=== PATIENT | female | born 1990 ===

== ENCOUNTER 2017-07-30 19:31 | Emergency (ER) | payer OTHER ==
[2017-07-30 19:52] VITALS: PULSE 90; RESP 18; TEMP 97.7; O2SAT 98
--- NOTE | 2017-07-30 20:39 | ED PDOC ---
HPI: Back Time Seen by Provider: 07/30/17 20:00 Chief Complaint (Nursing): Back Pain Chief Complaint (Provider): Lower Back Pain History Per: Patient History/Exam Limitations: no limitations Onset/Duration Of Symptoms: Hrs Current Symptoms Are (Timing): Still Present Severity: None Previous Symptoms: None Associated Symptoms: None Additional Complaint(s): 27 year old female presents to the ED complaining of lower back pain that began today around 11 am. The patient states that the pain began after she bent over to grape picker a basket of laundry. She denies any other strenuous activity. The patient describes the pain as strong and states that it shoots across the lower back and radiates to her bilateral lower extremities. Patient reports that she took 400mg of advil at noon but it offered her no relief. Denies trauma, falls, fever, bowel/bladder incontinence, chest pain, abdominal pain, shortness of breath, saddle anesthesia, urinary symptoms. Of note: Due to language barrier abrasive grader [id number] was used for translation. L.M.P: 07/24/17 NO PRIMARY CARE PROVIDER Past Medical History Reviewed: Historical Data, Nursing Documentation, Vital Signs Vital Signs: Last Vital Signs Temp 97.7 F 07/30/17 19:48 Pulse 90 07/30/17 19:48 Resp 18 07/30/17 19:48 BP 122/102 H 07/30/17 19:48 Pulse Ox 98 07/30/17 19:48 - Medical History PMH: No Chronic Diseases - Surgical History Surgical History: No Surg Hx - Family History Family History: States: Unknown Family Hx - Social History Current smoker - smoking cessation education provided: No Ex-Smoker (has not smoked in the last 12 months): No Alcohol: None Drugs: Denies - Home Medications Home Medications: Ambulatory Orders Medication Instructions Recorded Cyclobenzaprine [Cyclobenzaprine 10 mg PO Q8 PRN #12 tab 07/30/17 HCl] Naproxen 500 mg PO BID #20 tab 07/30/17 - Allergies Allergies/Adverse Reactions: Allergies Allergy/AdvReac Type Severity Reaction Status Date / Time No Known Allergies Allergy Verified 07/30/17 19:48 Review of Systems ROS Statement: Except As Marked, All Systems Reviewed And Found Negative Constitutional: Negative for: Fever Cardiovascular: Negative for: Chest Pain Gastrointestinal: Negative for: Abdominal Pain Genitourinary Female: Negative for: Incontinence (bowel nor bladder) Musculoskeletal: Positive for: Back Pain (lower) Physical Exam - Reviewed Nursing Documentation Reviewed: Yes Vital Signs Reviewed: Yes - Physical Exam Appears: Positive for: Well, Non-toxic, Uncomfortable Head Exam: Positive for: ATRAUMATIC, NORMAL INSPECTION, NORMOCEPHALIC Skin: Positive for: Normal Color, Warm, Dry. Negative for: Rash Eye Exam: Positive for: Normal appearance, EOMI, PERRL Neck: Positive for: Normal (No midline tenderness), Painless ROM, Supple. Negative for: Decreased ROM, Pain On Movement Of Neck Cardiovascular/Chest: Positive for: Regular Rate, Rhythm, Chest Non Tender. Negative for: Murmur, Tachycardia Respiratory: Positive for: Normal Breath Sounds, Rhonchi. Negative for: Decreased Breath Sounds, Accessory Muscle Use, Wheezing, Respiratory Distress Pulses-Dorsalis Pedis (L): 2+ Pulses-Dorsalis Pedis (R): 2+ Gastrointestinal/Abdominal: Positive for: Bowel Sounds, Soft. Negative for: Tenderness, Distended, Guarding, Rebound Back: Positive for: Muscle Spasm (to right paralumbar region), Other (Diffuse paralumbar tenderness). Negative for: L CVA Tenderness, R CVA Tenderness, Vertebral Tenderness Extremity: Positive for: Normal ROM, Tenderness. Negative for: Calf Tenderness , Deformity, Swelling Neurologic/Psych: Positive for: Alert, Oriented, Gait, Other (Sensation in both legs intact ). Negative for: Motor/Sensory Deficits - ECG O2 Sat by Pulse Oximetry: 98 (RA) Pulse Ox Interpretation: Normal Medical Decision Making Medical Decision Makin Initial Impression 27 y/o female presenting with acute back pain/spasm, lumbosacral strain Initial Plan: * Flexeril 10mg PO * Toradol 30mg IM * Ultram 50mg PO * Reevaluation 2139 On re-evaluation, patient resting in bed but still reports continued pain. Valium 5mg PO administered. 2309 Patient able to ambulate in ED. Reports improvement of presenting symptoms. NV intact with no focal deficit. Stable for discharge. Patient agreeable to discharge plan and outpatient follow up with the clinic. Documented by Melita Sheridan acting as a scribe for Aye BULL. All medical record entries made by the Scribe were at my direction and personally dictated by me. I have reviewed the chart and agree that the record accurately reflects my personal performance of the history, physical exam, medical decision making, and the department course for this patient. I have also personally directed, reviewed, and agree with the discharge instructions and disposition. Disposition - Clinical Impression Clinical Impression: Acute low back pain, Lumbosacral strain, Muscle spasm of back - Patient ED Disposition Is Patient to be Admitted: No - Disposition Referrals: [facility] [Outside] Disposition: Routine/Home Disposition Time: 23:19 Condition: STABLE Prescriptions: Cyclobenzaprine [Cyclobenzaprine HCl] 10 mg PO Q8 PRN #12 tab PRN Reason: spasm Naproxen 500 mg PO BID #20 tab Instructions: Low Back Pain in Adults, Muscle Spasms (DC), Lumbar Muscle Strain Forms: [facility] (Tajik) Print Language: SOUTH SUDANESE
[2017-07-30] MEDS ORDERED: diaZEpam 10 mg/2 ml Inj IM STA (21:38)
[2017-07-30 23:33] VITALS: BP 105/70
== END 2017-07-30 23:50 | disposition home or self-care (01) ==
LOC: H.ER 19:31
DX: S39.012A Strain of muscle, fascia and tendon of lower back, initial encounter (principal); M62.830 Muscle spasm of back; M54.5 Low back pain
CPT/HCPCS: 81025; 96372; 99282; J1885

== ENCOUNTER 2018-07-21 17:07 | Emergency (ER) | payer OTHER ==
[2018-07-21 18:02] VITALS: BMI 22.9
[2018-07-21] MEDS ORDERED: Sodium Chloride 0.9% 1,000 ML IV STA (19:29)
--- NOTE | 2018-07-21 19:47 | ED PDOC ---
HPI: Influenza Time Seen by Provider: 07/21/18 19:12 Chief Complaint: Flu-like Symptoms History Per: Patient Additional complaint(s):: Pt. states on Tuesday she developed a fever, bodyaches, cough/congestion, N/V, bodyaches. Has been taking Tylenol 1 tab PO q12h (last dose 4 hours ago). Reports she is able to tolerating fluids but has also had a decreased appetite. Denies abdominal pain and diarrhea (contrary to triage note). Denies SOB, rash, sick contacts, recent travel, melena, hematochezia, BRBPR, rectal bleeding. Past Medical History Reviewed: Historical Data, Nursing Documentation, Vital Signs Vital Signs: Last Vital Signs Temp 101.9 F H 07/21/18 17:59 Pulse 110 H 07/21/18 17:59 Resp 18 07/21/18 17:59 BP 111/72 07/21/18 17:59 Pulse Ox 99 07/21/18 17:59 - Surgical History Surgical History: Appendectomy - Family History Family History: States: No Known Family Hx - Home Medications Home Medications: Ambulatory Orders Medication Instructions Recorded Cyclobenzaprine [Cyclobenzaprine 10 mg PO Q8 PRN #12 tab 07/30/17 HCl] RX: Naproxen 500 mg PO BID #20 tab 07/30/17 Oseltamivir Cap [Tamiflu] 75 mg PO BID #9 cap 07/21/18 RX: Ibuprofen [Motrin Tab] 600 mg PO Q6 PRN #10 tab 07/21/18 - Allergies Allergies/Adverse Reactions: Allergies Allergy/AdvReac Type Severity Reaction Status Date / Time No Known Allergies Allergy Verified 07/21/18 18:05 Review of Systems ROS Statement: Except As Marked, All Systems Reviewed And Found Negative Constitutional: Positive for: Fever, Malaise ENT: Positive for: Throat Pain Respiratory: Positive for: Cough Gastrointestinal: Positive for: Nausea, Vomiting Physical Exam - Physical Exam Appears: Positive for: Well, Non-toxic, No Acute Distress Skin: Positive for: Normal Color, Warm. Negative for: Rash Eye Exam: Positive for: Normal appearance ENT: Positive for: Normal ENT Inspection. Negative for: Pharyngeal Erythema, T onsillar Exudate, Tonsillar Swelling Neck: Positive for: Normal, Painless ROM, Supple Cardiovascular/Chest: Positive for: Tachycardia. Negative for: Murmur Respiratory: Positive for: Normal Breath Sounds. Negative for: Wheezing, Respiratory Distress Gastrointestinal/Abdominal: Positive for: Soft. Negative for: Tenderness, Guarding - Laboratory Results Result Diagrams: 07/21/18 21:38 07/21/18 21:38 - ECG O2 Sat by Pulse Oximetry: 99 - Radiology X-Ray: Interpreted by Me (CXR) X-Ray Interpretation: No Acute Disease - Progress Condition: Re-examined, Improved Disposition - Clinical Impression Clinical Impression: Influenza - Patient ED Disposition Is Patient to be Admitted: No - Disposition Referrals: [facility] [Outside] Disposition: Routine/Home Disposition Time: 21:24 Condition: IMPROVED Additional Instructions: FOLLOW UP WITH YOUR DOCTOR FOR FURTHER EVALUATION RETURN TO ED IMMEDIATELY IF SYMPTOMS WORSEN ANAMARIA MARY, thank you for letting us take care of you today. Your provider was Aye Hernandez MD and you were treated for FLU LIKE SYMPTOMS. The emergency medical care you received today was directed at your acute symptoms. If you were prescribed any medication, please fill it and take as directed. It may take several days for your symptoms to resolve. Return to the Emergency Department if your symptoms worsen, do not improve, or if you have any other problems. Please contact your doctor or call one of the physicians/clinics you have been referred to that are listed on the Patient Visit Information form that is included in your discharge packet. Bring any paperwork you were given at discharge with you along with any medications you are taking to your follow up visit. Our treatment cannot replace ongoing medical care by a primary care provider outside of the emergency department. Thank you for allowing the [facility] team to be part of your care today. If you had an X-Ray or CT scan: A Radiologist will review the ED reading if any change in treatment is needed we will contact you. If you had a blood, urine, or wound culture: It will take several days for the results, if any change in treatment is needed we will contact you. If you had an STI test: It will take 48 hours for the results. Please call after 1 week if you have not heard back. Prescriptions: RX: Ibuprofen [Motrin Tab] 600 mg PO Q6 PRN #10 tab PRN Reason: Fever >100.4 F Oseltamivir Cap [Tamiflu] 75 mg PO BID #9 cap Instructions: Flu, Adult (DC) Print Language: CAMEROONIAN
[2018-07-21 21:37] LABS: VENOUS BLOOD GAS BASE EXCESS -0.1 mmol/L (0.0-2.0); VENOUS BLOOD GAS PCO2 36 mmHg (40-60); VENOUS BLOOD GAS PO2 58 mm/Hg (30-55); VENOUS BLOOD PH 7.43 (7.32-7.43)
[2018-07-21 21:55] LABS: BASO % 0.4 % (0.0-2.0); HEMOGLOBIN 12.5 g/dL (12.0-16.0); LYMPH # 0.9 K/uL (1.0-4.3); LYMPH % 29.9 % (20.0-40.0); MEAN CELL VOLUME 85.9 fl (81.0-99.0); MEAN CORPUSCULAR HEMOGLOBIN 28.9 pg (27.0-31.0); MEAN CORPUSCULAR HGB CONC 33.6 g/dL (33.0-37.0); MEAN PLATELET VOLUME 9.3 fl (7.2-11.7); MONO # 0.3 K/uL (0.0-0.8); MONO % 8.3 % (0.0-10.0); NEUT # 1.9 K/uL (1.8-7.0); NEUT % 61.4 % (50.0-75.0); RBC 4.32 Mil/uL (3.80-5.20); RED CELL DISTRIBUTION WIDTH 13.1 % (11.5-14.5); WHITE BLOOD COUNT 3.1 K/uL (4.8-10.8)
[2018-07-21 21:59] LABS: SQUAMOUS EPITHIAL 11 /hpf (0-5); URINE BACTERIA RARE (<OCC); URINE BILIRUBIN NEGATIVE (NEGATIVE); URINE BLOOD SMALL (NEGATIVE); URINE CLARITY CLOUDY (Clear); URINE COLOR YELLOW (YELLOW); URINE GLUCOSE (UA) NEG (NEGATIVE); URINE LEUKOCYTE ESTERASE NEG Leu/uL (Negative); URINE PROTEIN 30 mg/dL (NEGATIVE); URINE UROBILINOGEN 0.2-1.0 mg/dL (0.2-1.0)
[2018-07-21 22:05] LABS: ALB/GLOB RATIO 1.3 (1.0-2.1); ALBUMIN 3.7 g/dL (3.5-5.0); ALT/SGPT 49 U/L (9-52); AST/SGOT 42 U/L (14-36); BLOOD UREA NITROGEN 9 mg/dl (7-17); CALCIUM 8.1 mg/dL (8.4-10.2); GFR NON-AFRICAN AMERICAN > 60
[2018-07-21] MEDS ORDERED: Potassium Chloride 20 mEq ER Tab PO STA (22:14)
[2018-07-21] MEDS ORDERED: Potassium Chloride 20 mEq ER Tab PO ONE (23:16)
[2018-07-21 23:18] VITALS: BP 102/65; PULSE 73; RESP 18; TEMP 99.6
--- NOTE | 2018-07-22 10:03 | RAD ---
Date of service: 07/21/2018 HISTORY: cough COMPARISON: No prior. TECHNIQUE: Chest PA and lateral FINDINGS: LUNGS: No active pulmonary disease. PLEURA: No significant pleural effusion identified. No pneumothorax apparent. CARDIOVASCULAR: No aortic atherosclerotic calcification present. Normal cardiac size. No pulmonary vascular congestion. OSSEOUS STRUCTURES: No significant abnormalities. VISUALIZED UPPER ABDOMEN: Normal. OTHER FINDINGS: None. IMPRESSION: No active disease.
[2018-07-22 23:17] VITALS: O2SAT 99
== END 2018-07-21 23:20 | disposition home or self-care (01) ==
LOC: H.ER 17:07
DX: J11.1 Influenza due to unidentified influenza virus with other respiratory manifestations (principal)
CPT/HCPCS: 71046; 80053; 81003; 81025; 82803; 85025; 87040; 87070; 87430; 87804; 96361; 96374; 99285; J2405; J7030

== ENCOUNTER 2018-07-24 14:18 | Emergency (ER) | payer OTHER ==
[2018-07-24 14:18] VITALS: BMI 22.9
[2018-07-24 16:35] VITALS: PULSE 74
--- NOTE | 2018-07-24 17:19 | ED PDOC ---
History of Present Illness History of Present Illness: Yoselin Lei is a 28 year old female with no past medical history who is presenting to the ED for evaluation of continued body aches, cough and decreased appetite. Patient states that she was seen here on 07/21 and had a workup done that consisted of blood, urine and chest x-ray with the only significant result of a positive influenza test. She reports that she was discharged with ibuprofen and Tamiflu which she has been taking accordingly; her last dose of Tamiflu was this morning and her last dose of Ibuprofen was last night. She admits that her symptoms have not yet improved and adds that she has been experiencing intermittent chest pain. Patient denies any other complaints and denies any abdominal pain, nausea, vomiting, diarrhea, urinary symptoms, shortness of breath, or hematochezia. She also denies any recent travel or sick contacts. LNMP: 07/18/18 PMD: none provided HPI: Influenza Time Seen by Provider: 07/24/18 16:37 Chief Complaint: Flu-like Symptoms Chief Complaint (Provider): Flu-like Symptoms History Per: Patient Exam Limitations: no limitations Onset/Duration Of Symptoms: Days Symptoms include: bodyaches, cough, chest pain. denies: vomiting, diarrhea Past Medical History Reviewed: Historical Data, Nursing Documentation, Vital Signs Vital Signs: Last Vital Signs Temp 97.9 F 07/24/18 16:34 Pulse 74 07/24/18 16:34 Resp 18 07/24/18 16:34 BP 104/72 07/24/18 16:34 Pulse Ox 99 07/24/18 16:34 - Medical History PMH: No Chronic Diseases - Surgical History Surgical History: Appendectomy, - Family History Family History: States: Unknown Family Hx - Social History Current smoker - smoking cessation education provided: No Alcohol: None Drugs: Denies - Home Medications Home Medications: Ambulatory Orders Medication Instructions Recorded Cyclobenzaprine [Cyclobenzaprine 10 mg PO Q8 PRN #12 tab 07/30/17 HCl] RX: Naproxen 500 mg PO BID #20 tab 07/30/17 Oseltamivir Cap [Tamiflu] 75 mg PO BID #9 cap 07/21/18 RX: Ibuprofen [Motrin Tab] 600 mg PO Q6 PRN #10 tab 07/21/18 Acetaminophen [Acetaminophen 8 650 mg PO Q8 PRN #21 tablet.er 07/24/18 Hour] - Allergies Allergies/Adverse Reactions: Allergies Allergy/AdvReac Type Severity Reaction Status Date / Time No Known Allergies Allergy Verified 07/21/18 18:05 Review of Systems ROS Statement: Except As Marked, All Systems Reviewed And Found Negative Constitutional: Positive for: Fever, Other (body aches ) Cardiovascular: Positive for: Chest Pain Respiratory: Positive for: Cough Gastrointestinal: Negative for: Nausea, Vomiting, Abdominal Pain, Diarrhea Genitourinary Female: Negative for: Dysuria, Frequency, Incontinence Physical Exam - Reviewed Nursing Documentation Reviewed: Yes Vital Signs Reviewed: Yes - Physical Exam Comments: GENERAL APPEARANCE: Patient is awake, alert, oriented x 3, in no acute distress. SKIN: Warm, dry; (-) cyanosis. ENMT: Mucous membranes moist. Airway patent, (-) stridor. NECK: Supple, FROM (-) tenderness, (-) stiffness, (-) lymphadenopathy. CHEST AND RESPIRATORY: (-) rales, (-) rhonchi, (-) wheezes; breath sounds equal bilaterally. Respirations even and nonlabored; speaking in full sentences. HEART AND CARDIOVASCULAR: (-) irregularity ABDOMEN AND GI: Soft (-) distention (-) tenderness (-) guarding, (-) rebound, (- ) palpable masses, (-) CVA tenderness. EXTREMITIES: (-) deformity NEURO AND PSYCH: Mental status as above; (-) focal findings. Gait: steady. Speech: clear. (-) facial asymmetry Medical Decision Making Medical Decision Making: Time: 17:05 Impression: Influenza Plan: --EKG --Toradol 30 mg IM --Tylenol 650 mg PO --CXR and labs reviewed from initial ED visit. 1730 EKG: NSR @ 66bpm (-) ST elevation, QTc 454 1755 Case discussed with ED MD Amos who recommends CBC, CMP and Troponin. 1L NS also ordered. IV access established. 1915 Labs reviewed. Patient reports improvement of symptoms after receiving IVF. Troponin WNL. On exam, patient remains AAOx3, in no acute distress. Lungs clear to auscultation, cardiac RRR, abdomen soft, non-tender, repeat neuro exam shows no focal findings. Vitals stable. Lab/Diagnostic results d/w the patient in great detail. Diagnosis of bodyaches, influenza, chest pain d/w the patient. Based on history, exam and diagnostic results, plan will be for outpatient follow up with PMD/clinic. Return parameters discussed. Patient instructed to follow-up with pmd / referral provided / the clinic in 1- 2 days without fail. Advised to take medication as prescribed. Return to the emergency room at any time for any new or worsening symptoms. Patient states she fully agrees with and understands discharge instructions. States that she agrees with the plan and disposition. Verbalized and repeated discharge instructions and plan. I have given the patient opportunity to ask any additional questions. Scribe Attestation: Documented by, Ilana Juárez acting as a scribe for Aye Posada PA-C. Provider Scribe Attestation: All medical record entries made by the Scribe were at my direction and personally dictated by me. I have reviewed the chart and agree that the record accurately reflects my personal performance of the history, physical exam, medical decision making, and the department course for this patient. I have also personally directed, reviewed, and agree with the discharge instructions and disposition. - Laboratory Results Result Diagrams: 07/24/18 18:31 07/24/18 18:31 - ECG O2 Sat by Pulse Oximetry: 99 (RA) Pulse Ox Interpretation: Normal Disposition - Clinical Impression Clinical Impression: Influenza, Body aches, Chest pain - Patient ED Disposition Is Patient to be Admitted: No Counseled Patient/Family Regarding: Studies Performed, Diagnosis, Need For Followup, Rx Given - Disposition Referrals: [facility] [Outside] Disposition: Routine/Home Disposition Time: 19:15 Condition: STABLE Additional Instructions: Continuar con los medicamentos de la visita a la jasper de emergencias anterior hasta completar. Marylu muchos lquidos y descansa. La atencin mdica de emergencia que recibi hoy se dirigi a phillip sntomas agudos. Si le recetaron algn medicamento, llnelo y tmelo segn las indicaciones. Los sntomas pueden tardar varios robbins en resolverse. Regrese al Departamento de Emergencias si phillip sntomas empeoran, no mejoran o si tiene otros problemas. Comunquese con baum mdico dentro de 2 robbins para krys nueva evaluacin y hadley un seguimiento o llame a natasha de los mdicos / clnicas a los que sue sido referido y que figuran en el formulario de Informacin de visita al paciente que se incluye en baum paquete de jazmin. Lleve todos los documentos que le entregaron al momento del jazmin junto con todos los medicamentos que est tomando para baum visita de seguimiento. Nuestro tratamiento no puede reemplazar la atencin mdica continua por parte de un proveedor de atencin primaria (PCP) fuera del departamento de emergencias. Prescriptions: Acetaminophen [Acetaminophen 8 Hour] 650 mg PO Q8 PRN #21 tablet.er PRN Reason: pain/fever Instructions: Flu, Chest Pain That Is Not Caused by the Heart (DC), Fatigue, Muscle and Bone Pain (DC) Forms: [employer] (Wolof) Print Language: ETHIOPIAN - POA Present On Arrival: None Results - Lab Results Lab Results: 07/24/18 07/24/18 18:31 18:31 WBC 3.4 L RBC 5.18 Hgb 15.0 D Hct 44.7 MCV 86.4 MCH 28.9 MCHC 33.5 RDW 13.2 Plt Count 191 MPV 9.0 Neut % (Auto) 45.5 L Lymph % (Auto) 44.9 H Otero % (Auto) 8.4 Eos % (Auto) 0.7 Baso % (Auto) 0.5 Neut # (Auto) 1.5 L Lymph # (Auto) 1.5 Otero # (Auto) 0.3 Eos # (Auto) 0.0 Baso # (Auto) 0.0 Sodium 140 Potassium 4.4 Chloride 98 Carbon Dioxide 31 H Anion Gap 15 BUN 5 L Creatinine 0.5 L Est GFR ( Amer) > 60 Est GFR (Non-Af Amer) > 60 Random Glucose 105 Calcium 9.4 Total Bilirubin 0.5 AST 44 H ALT 37 Alkaline Phosphatase 56 Troponin I < 0.0120 Total Protein 8.1 Albumin 4.7 Globulin 3.4 Albumin/Globulin Ratio 1.4
[2018-07-24] MEDS ORDERED: Sodium Chloride 0.9% 1,000 ML IV ONE (17:58)
[2018-07-24 18:37] LABS: BASO % 0.5 % (0.0-2.0); EOS % 0.7 % (0.0-4.0); LYMPH # 1.5 K/uL (1.0-4.3); LYMPH % 44.9 % (20.0-40.0); MEAN CELL VOLUME 86.4 fl (81.0-99.0); MEAN CORPUSCULAR HEMOGLOBIN 28.9 pg (27.0-31.0); MEAN CORPUSCULAR HGB CONC 33.5 g/dL (33.0-37.0); MONO # 0.3 K/uL (0.0-0.8); MONO % 8.4 % (0.0-10.0); NEUT # 1.5 K/uL (1.8-7.0); NEUT % 45.5 % (50.0-75.0); NRBC % 0.2 % (0.0-0.0); RBC 5.18 Mil/uL (3.80-5.20); RED CELL DISTRIBUTION WIDTH 13.2 % (11.5-14.5); WHITE BLOOD COUNT 3.4 K/uL (4.8-10.8)
[2018-07-24 19:09] LABS: ALB/GLOB RATIO 1.4 (1.0-2.1); ALBUMIN 4.7 g/dL (3.5-5.0); ALT/SGPT 37 U/L (9-52); AST/SGOT 44 U/L (14-36); BLOOD UREA NITROGEN 5 mg/dl (7-17); CALCIUM 9.4 mg/dL (8.4-10.2); GFR NON-AFRICAN AMERICAN > 60
[2018-07-24 19:49] VITALS: BP 103/65; RESP 20; TEMP 98.3
--- NOTE | 2018-07-25 11:57 | CARD ---
APPROVED REPORT Date of service: 07/24/2018 EKG Measurement Heart [id number] <Conclusion> Normal sinus rhythm Normal ECG
[2018-07-26 19:40] VITALS: O2SAT 99
== END 2018-07-24 19:48 | disposition home or self-care (01) ==
LOC: H.ER 14:18
DX: J11.1 Influenza due to unidentified influenza virus with other respiratory manifestations (principal); M79.18 Myalgia, other site
CPT/HCPCS: 80053; 84484; 85025; 93005; 96360; 96372; 99284; J1885; J7040